=== PATIENT | female | born 1970 | race Caucasian/White ===

== ENCOUNTER 2017-07-16 19:03 | Emergency (ER) | payer MEDICAID, OTHER ==
[2017-07-16 19:12] VITALS: BP 131/78; PULSE 70; RESP 18; TEMP 97.9; O2SAT 97
--- NOTE | 2017-07-16 19:48 | ED PDOC ---
HPI: Skin/Bite Injury Time Seen by Provider: 07/16/17 19:24 Chief Complaint (Nursing): Abnormal Skin Integrity Chief Complaint (Provider): Left breast pain History Per: Patient History/Exam Limitations: no limitations Additional Complaint(s): Patient is a 47 y/o female presenting to the emergency department for burning pain on her left breast ongoing for two days. Denies fever or chills. PCP: none provided. Past Medical History Reviewed: Historical Data, Nursing Documentation, Vital Signs Vital Signs: Last Vital Signs Temp 97.9 F 07/16/17 19:09 Pulse 70 07/16/17 19:09 Resp 18 07/16/17 19:09 BP 131/78 07/16/17 19:09 Pulse Ox 97 07/16/17 19:53 - Medical History PMH: Back Problems (scoliosis), Depression, HTN, Hypercholesterolemia - Surgical History Surgical History: (x 3) - Family History Family History: States: Unknown Family Hx - Social History Current smoker - smoking cessation education provided: No Ex-Smoker (has not smoked in the last 12 months): No Alcohol: None Drugs: Denies - Immunization History Hx Tetanus Toxoid Vaccination: Yes Hx Influenza Vaccination: Yes Hx Pneumococcal Vaccination: No - Home Medications Home Medications: Ambulatory Orders Medication Instructions Recorded Aluminum Hydroxide/Magnesium H 30 ml PO TID #100 ml 05/10/17 [Maalox 30 ml] Omeprazole 40 mg PO DAILY 05/10/17 Phenobarb/Hyoscy/Atropine/Scop 16.2 mg PO BID #14 tablet 05/10/17 [ Tablet] Sertraline [Zoloft] 25 mg PO DAILY 05/10/17 Cephalexin [cephalexin] 500 mg PO BID #20 cap 07/16/17 - Allergies Allergies/Adverse Reactions: Allergies Allergy/AdvReac Type Severity Reaction Status Date / Time No Known Allergies Allergy Verified 05/10/17 03:07 Review of Systems ROS Statement: Except As Marked, All Systems Reviewed And Found Negative Constitutional: Negative for: Fever, Chills Musculoskeletal: Positive for: Other (left breast pain) Physical Exam - Reviewed Nursing Documentation Reviewed: Yes Vital Signs Reviewed: Yes - Physical Exam Appears: Positive for: Well, Non-toxic, No Acute Distress Head Exam: Positive for: ATRAUMATIC, NORMAL INSPECTION, NORMOCEPHALIC Skin: Positive for: Normal Color, Warm, DRY Eye Exam: Positive for: Normal appearance. Negative for: Scleral icterus Neck: Positive for: Normal, Painless ROM, Supple Respiratory: Negative for: Accessory Muscle Use, Respiratory Distress Neurologic/Psych: Positive for: Alert, Oriented (x3) Comments: Tenderness on palpation of left breast with no erythema. Lymph node swelling on left axilla noted (11 o' clock). - ECG O2 Sat by Pulse Oximetry: 97 (RA) Pulse Ox Interpretation: Normal Medical Decision Making Medical Decision Makin:30 Initial Impression: Left breast pain Initial plan: - Warm compresses - Reevaluation 19:50 Upon provider reevaluation patient is feeling better, is medically stable, and requires no further treatment in the ED at this time. Counseling was provided and all questions were answered regarding diagnosis. There is agreement to discharge plan. Return if symptoms persist or worsen. Clinical Impression: Clogged duct on left breast Scribe Attestation: Documented by Andreia Hammonds, acting as a scribe for AVIVA Steven. Provider Scribe Attestation: All medical record entries made by the Scribe were at my direction and personally dictated by me. I have reviewed the chart and agree that the record accurately reflects my personal performance of the history, physical exam, medical decision making, and the department course for this patient. I have also personally directed, reviewed, and agree with the discharge instructions and disposition. Disposition - Clinical Impression Clinical Impression: Skin infection - Disposition Disposition: Routine/Home Disposition Time: 19:50 Condition: STABLE Prescriptions: Cephalexin [cephalexin] 500 mg PO BID #20 cap Instructions: Acute Wound Care (ED) Forms: [employer] (Emirati)
== END 2017-07-16 19:51 | disposition home or self-care (01) ==
LOC: H.ER 19:03
DX: N61.0 Mastitis without abscess (principal)

== ENCOUNTER 2017-07-18 18:49 | Emergency (ER) | payer MEDICAID, OTHER ==
[2017-07-18 19:03] VITALS: BP 148/98; PULSE 67; RESP 18; TEMP 97.3; O2SAT 99
--- NOTE | 2017-07-18 19:43 | ED PDOC ---
HPI: Skin/Bite Injury Time Seen by Provider: 07/18/17 18:54 Chief Complaint (Nursing): Abnormal Skin Integrity Chief Complaint (Provider): Abscess on left nipple History Per: Patient History/Exam Limitations: no limitations Onset/Duration Of Symptoms: Days Current Symptoms Are (Timing): Still Present Quality Of Symptoms: Swollen, Draining Additional History Per: Patient Additional Complaint(s): The patient is a 47yo female, presents to the ED for evaluation of an abscess on her left nipple, present for the past week. Patient was seen in this facility two days ago and was given prescription for Kefflex and was advised to apply warm compresses to her breast. Patient presents today with continued pain and reports some drainage. She also states she has been following the prescribed antibiotics course; she denies any fever or chills. Patient offers no additional medical complaints. Past Medical History Vital Signs: Last Vital Signs Temp 97.3 F L 07/18/17 19:00 Pulse 67 07/18/17 19:00 Resp 18 07/18/17 19:00 BP 148/98 H 07/18/17 19:00 Pulse Ox 99 07/18/17 19:45 - Medical History PMH: Back Problems (scoliosis), Depression, HTN, Hypercholesterolemia - Surgical History Surgical History: (x 3) - Family History Family History: States: Unknown Family Hx - Immunization History Hx Tetanus Toxoid Vaccination: Yes Hx Influenza Vaccination: Yes Hx Pneumococcal Vaccination: No - Home Medications Home Medications: Ambulatory Orders Medication Instructions Recorded Aluminum Hydroxide/Magnesium H 30 ml PO TID #100 ml 05/10/17 [Maalox 30 ml] Omeprazole 40 mg PO DAILY 05/10/17 Phenobarb/Hyoscy/Atropine/Scop 16.2 mg PO BID #14 tablet 05/10/17 [ Tablet] Sertraline [Zoloft] 25 mg PO DAILY 05/10/17 Cephalexin [cephalexin] 500 mg PO BID #20 cap 07/16/17 Sulfamethoxazole/Trimethoprim 1 each PO BID #20 tablet 07/18/17 [Bactrim 400-80 mg Tablet] - Allergies Allergies/Adverse Reactions: Allergies Allergy/AdvReac Type Severity Reaction Status Date / Time No Known Allergies Allergy Verified 05/10/17 03:07 Review of Systems ROS Statement: Except As Marked, All Systems Reviewed And Found Negative Constitutional: Negative for: Fever, Chills Skin: Positive for: Other (abscess on left nipple) Physical Exam - Reviewed Nursing Documentation Reviewed: Yes Vital Signs Reviewed: Yes - Physical Exam Appears: Positive for: Well, Non-toxic, No Acute Distress Head Exam: Positive for: ATRAUMATIC, NORMAL INSPECTION, NORMOCEPHALIC Skin: Positive for: Normal Color, Warm Eye Exam: Positive for: Normal appearance Neck: Positive for: Normal Cardiovascular/Chest: Positive for: Other (small abscess, 1cm in diameter, noted to patient's left nipple. no drainage noted.) Respiratory: Negative for: Accessory Muscle Use, Respiratory Distress Neurologic/Psych: Positive for: Alert, Oriented. Negative for: Motor/Sensory Deficits - ECG O2 Sat by Pulse Oximetry: 99 (RA) Pulse Ox Interpretation: Normal Medical Decision Making Medical Decision Making: Time: 1904 Impression: Abscess on left nipple Plan: -- Patient advised to continue her antibiotics and use warm compresses more frequently. Patient informed to follow up with her PCP as well. Patient stable for d/c home. Scribe Attestation: Documented by Nelli Flores acting as a scribe for AVIVA Juares Provider Attestation: All medical record entries made by the Scribe were at my direction and personally dictated by me. I have reviewed the chart and agree that the record accurately reflects my personal performance of the history, physical exam, medical decision making, and the department course for this patient. I have also personally directed, reviewed, and agree with the discharge instructions and disposition. Disposition - Clinical Impression Clinical Impression: Abscess - Disposition Disposition: Routine/Home Disposition Time: 19:10 Condition: STABLE Prescriptions: Sulfamethoxazole/Trimethoprim [Bactrim 400-80 mg Tablet] 1 each PO BID #20 tablet Instructions: Abscess (ED) Forms: [employer] (Setswana) Print Language: SUDANESE
== END 2017-07-18 19:41 | disposition home or self-care (01) ==
LOC: H.ER 18:49
DX: N61.1 Abscess of the breast and nipple (principal); I10 Essential (primary) hypertension; F32.9 Major depressive disorder, single episode, unspecified